=== PATIENT | female | born 1985 | race Caucasian/White ===

== ENCOUNTER 2018-12-14 11:23 | Outpatient (REF) | payer BC, SELFPAY ==
--- NOTE | 2018-12-14 08:30 | PAPFT_PTH ---
PATIENT: Natalya Puga LOC: [facility] U#:[id number] AGE/SX: 32/F ROOM: RE12/14/[address]: RED Sutherland : 1985 BED: DIS: 12/14/2018 SPEC #: [id number] RECD: 12/14/18 13:07 STATUS: HENRIETTA PRABHAKAR #: [id number] JUAN CARLOS: 12/14/18 08:[address]: Luz Marina Lanier DEPT: [facility] Cytology RECD BY: Danisha Tamez ENTERED: 12/14/18 13:08 SP TYPE: PAPFT PRETTY DR: Felecia Kitchen APRN Tissues: 1 - CX/ENDOCX FOR PAP SMEARS Procedures: PAP THIN PREP/UVM Screening HPV DNA PROBE Comments: [id number]
== END 2018-12-14 11:43 ==
LOC: LBN 11:23
PROVIDERS: PCP Nurse Practitioner; Visit Provider Nurse Practitioner Family
DX: Z12.4 Encounter for screening for malignant neoplasm of cervix (principal); Z11.51 Encounter for screening for human papillomavirus (HPV)
CPT/HCPCS: 88142; 87624

== ENCOUNTER 2019-10-01 10:59 | Outpatient (REF) | payer BC, SELFPAY ==
[2019-10-04 15:10] LABS: Chlamydia Result Negative (Negative); GC Result Negative (Negative)
== END 2019-10-01 11:19 ==
LOC: LBN 10:59
PROVIDERS: PCP Nurse Practitioner; Visit Provider Nurse Practitioner Family
DX: Z11.3 Encounter for screening for infections with a predominantly sexual mode of transmission (principal)
CPT/HCPCS: 87491; 87591

== ENCOUNTER 2019-10-15 01:52 | Outpatient (CLI) | payer BC, SELFPAY ==
--- NOTE | 2019-10-15 07:57 | DI.US_ITS ---
EXAM: US PELVIS TRANSVAGINAL CLINICAL HISTORY: IUD surveillence,Z30.431 TECHNIQUE: Ultrasound performed using standard protocol. COMPARISON: RIGHT EXTREMITY ULTRASOUND from 08/16/2016 FINDINGS: Pelvic ultrasound was performed transabdominally and transvaginally. Please see the accompanying kirt a sheet for measurements of pelvic structures. 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 No hydronephrosis or nephrolithiasis. There is an IUD seen in the mid fundal endometrial cavity. Endometrial stripe is about 11 millimeter s in thickness and appears fairly homogeneous. The ovaries have a normal follicular appearance. The re is a high echogenicity focus in the left ovary which is nonspecific but which should represent dee cification. No free fluid identified in the cul-de-sac. IMPRESSION: Question left ovarian calcification, alternatively hyperechoic mass such as fat containing dermoid no t excluded. Correlation with pelvic MRI should be considered for further evaluation to evaluate this ovarian finding and exclude neoplasm.
== END 2019-10-15 02:12 ==
PROVIDERS: PCP Nurse Practitioner; Visit Provider Nurse Practitioner Women's Health
DX: Z30.431 Encounter for routine checking of intrauterine contraceptive device (principal); N83.8 Other noninflammatory disorders of ovary, fallopian tube and broad ligament
CPT/HCPCS: 76830; 76856

== ENCOUNTER 2021-12-25 16:38 | Outpatient (REF) | payer OTHER, SELFPAY ==
--- NOTE | 2021-12-25 13:30 | PAPFT_PTH ---
PATIENT: Natalya Puga LOC: [facility] U#:[id number] AGE/SX: 36/F ROOM: RE12/25/[address]: Leona Mendoza NP : 1985 BED: DIS: 12/25/2021 SPEC #: [id number] RECD: 12/25/21 17:50 STATUS: HENRIETTA REQ #: [id number] JUAN CARLOS: 12/25/21 13:[address]: Reji ROMAN,Leona DEPT: [facility] Cytology RECD BY: Danisha Tamez ENTERED: 12/25/21 17:51 SP TYPE: PAPFT OTHR DR: Felecia Kitchen APRN Tissues: 1 - CX/ENDOCX FOR PAP SMEARS Procedures: PAP THIN PREP/UVM Screening HPV DNA PROBE Comments: [id number]
== END 2021-12-25 16:39 | disposition home or self-care (01) ==
LOC: LBN 16:38
PROVIDERS: PCP Nurse Practitioner; Visit Provider Nurse Practitioner Women's Health
DX: Z12.4 Encounter for screening for malignant neoplasm of cervix (principal); Z11.51 Encounter for screening for human papillomavirus (HPV)
CPT/HCPCS: 88142; 87624

== ENCOUNTER 2022-01-08 20:54 | Emergency (ER) | payer OTHER, SELFPAY ==
[2022-01-08 20:58] VITALS: BP 136/76; PULSE 76; RESP 12; TEMP 37.3; O2SAT 99
--- NOTE | 2022-01-08 21:00 | DI.RAD_ITS ---
Exam(s) XR FINGER RT RING EXAM: XR FINGER RT RING CLINICAL HISTORY: Crush injury, R/O Fracture Distal Phalange. TECHNIQUE: 2D digital imaging was performed. Three views. COMPARISON: No exams were available for comparison FINDINGS: BONES: There are few tiny calcific densities adjacent to the tuft of the distal phalanx is could repr esent fracture fragments or foreign bodies.. No bony destructive lesion is seen. JOINTS: No dislocation present. SOFT TISSUE: Soft tissue defect at tip of finger. IMPRESSION: Soft tissue injury with question tiny fracture fragment versus foreign body adjacent to the tuft of t he distal phalanx. DATA REPOSITORY: RADIATION DOSE DELIVERED:
--- NOTE | 2022-01-08 21:15 | W.ED.GENAD ---
Discharge Plan Disposition Patient Disposition: HOME Condition: Stable Discharge Details Clinical Impression: Fracture of distal phalanx of finger of right hand Primary Care Provider: Felecia Kitchen ED Provider: Rhonda Sidhu Home Meds and New Rx's Prescriptions: Continued lorazepam 0.5 mg tablet 0.5 mg PO BID PRN (Reason: anxiety) Qty: 40 0RF Kyleena 17.5 mcg/24 hrs (5 yrs) 19.5 mg intrauterine device 1 device intrauterine ONCE Qty: 1 0RF hydroxyzine pamoate [Vistaril] 25 mg capsule 25 mg PO BID PRN0RF Rx Instructions: 03/02/21 [facility] prescribes. May take 1-2 tabs a day as needed for mild to moderate SOLITARIO. Treats headache, nausea and anxiety ondansetron HCl [Zofran] 4 mg tablet 4 mg PO Q8H 0RF Rx Instructions: 03/02/21 [facility]. Use for nausea zolmitriptan 2.5 mg tablet 2.5 mg PO ONCE PRN0RF Rx Instructions: take 1 tablet with naproxen at onset of migraine, not to exceed 2days/week naproxen 500 mg tablet 500 mg PO ONCE 0RF Rx Instructions: take 1 tablet at onset of migraine--not to exceed 9days/mo meclizine 25 mg tablet 25 mg PO TID PRN0RF Discharge Instructions Instructions: Finger Fracture (ED) Additional Instructions: Keep the dressing on for the next 12 to 24 hours. After 24 hours you may change the dressing daily. Allow to air dry at least 1 to 2 hours a day. Rest, ice, compression, elevation. Keep the splint on for protection. Wash under running soap and water. Use the splint as needed for the neck 2 to 3 weeks. Does appear that there is a nondisplaced distal phalange fracture. Return to the ER or be seen again for any signs of infection including increased redness, increased pain, red streaks, drainage or any concerns. Please take Tylenol or Ibuprofen with food every 4-6 hours as needed for pain and swelling. Referrals: Felecia Kitchen, [facility] [Primary Care Provider] - Return if symptoms worsen Medical Decision Making 36-year-old female presents to the ER with chief complaint of right distal index finger crush injury. Patient reports approximately hour ago she was bending down and got her finger slammed in the inside hinge of a door. She does have a broken nail noted distally with some bleeding. Imaging ordered to rule out fracture, will soak digits in sterile saline and Betadine. I did discuss clipping the nail off. Patient verbalized understanding. Okay'd patient to take her on naproxen which she has with her. 2147: Nail trimmed and Xeroform gauze, 2 x 2 and tube gauze applied to finger. Discussed applying a splint to keep protection to the finger. I did offer a work note which patient declined. 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 Imaging Data Radiologic Study: Imaging: X-Ray My impression: Distal nondisplaced Phalange Fracture Radiologist's impression: Imaging protocol: XR Right fingers. Views: Minimum 2 views. COMPARISON: US RIGHT EXTREMITY ULTRASOUND 08/16/2016 4:18 PM FINDINGS: Bones/joints: Three views of the right 4th digit are submitted. Tiny calcific densities are subtly demonstrated adjacent to the tip of the distal phalanx. Tiny bone fragments, soft tissue calcifications, or artifact could have this appearance. Otherwise, no acute fracture is seen. Soft tissues: There is soft tissue swelling in the distal aspect of the right 4th digit. IMPRESSION: Tiny calcific densities subtly demonstrated adjacent to the tip of the distal phalanx of the 4th right digit. Tiny bone fragments, soft tissue calcifications, or artifact could have this appearance. Otherwise, no acute fracture is seen in the right 4th digit. Thank you for allowing us to participate in the care of your patient. Dictated and Authenticated by: Andrea Ibarra MD [facility] General Mode of arrival: ambulatory. Date/Time Provider Initiated Documentation: 01/08/22 21:05. Limitations to Documentation: no limitations. Information obtained by: patient, RN notes reviewed and old records reviewed. HPI Narrative: 36-year-old female presents to the ER with chief complaint of right distal index finger crush injury. Patient reports approximately hour ago she was bending down and got her finger slammed in the inside hinge of a door. She does have a broken nail noted distally with some bleeding. There is a small subungual hematoma noted. There is distal swelling. Patient has a past medical history of migraine and anxiety. Related Data Home Medications Medication Instructions Recorded Confirmed hydroxyzine pamoate 25 mg capsule 25 mg PO BID PRN 03/02/21 12/31/21 (Vistaril) ondansetron HCl 4 mg tablet 4 mg PO Q8H 03/02/21 01/08/22 (Zofran) lorazepam 0.5 mg tablet 0.5 mg PO BID PRN #40 tab 07/25/21 01/08/22 meclizine 25 mg tablet 25 mg PO TID PRN 11/21/21 01/08/22 naproxen 500 mg tablet 500 mg PO ONCE tab 11/21/21 01/08/22 zolmitriptan 2.5 mg tablet 2.5 mg PO ONCE PRN 11/21/21 01/08/22 levonorgestrel (Kyleena) 1 device INTRAUTERINE ONCE #1 ea 12/31/21 01/08/22 Previous Rx's Medication Instructions Recorded lorazepam 0.5 mg tablet 0.5 mg PO BID PRN #40 tab 07/25/21 levonorgestrel (Kyleena) 1 device INTRAUTERINE ONCE #1 ea 12/31/21 Allergies Allergy/AdvReac Type Severity Reaction Status Date / Time Cephalosporins Allergy Severe Hives Verified 01/08/22 21:01 Penicillins Allergy Severe Hives Verified 01/08/22 21:01 General Stated Complaint: Orthopedic TOMI: 4 Review of Systems Integumentary/Breasts Skin/Breast: Reports as per HPI and Reports wounds (Crush injury right ring finger) PFSH All Active Problems (Updated 01/08/22 @ 22:00 by Rhonda Sidhu) Fracture of distal phalanx of finger of right hand (Acute) IUD surveillance (Acute 12/31/21) Kyleena Migraine without aura, not intractable, without status migrainosus (Acute) Lesion of left ovary (Acute) by US ? Dermoid vs calcifications. [place] [facility] [place] Anxiety (Chronic) Callus of foot (Acute) Plantar wart of left foot (Acute) Medical History Seborrheic dermatitis scalp [place]20[place] [place] Surgical History Appendectomy (01/15/16) Augmentation mammoplasty Family History Sister HELLP syndrome Brother Down syndrome Grandfather Lung cancer Grandmother Colon cancer Grandfather Diabetes Essential hypertension Heart disease Myocardial infarction Grandmother TIA (transient ischemic attack) Social History Smoking/Tobacco Use Status: Former Tobacco Use Pack-years: 8 Smoking risk assessment performed?: Yes Alcohol Intake: current Alcohol Intake frequency: a few times a week Alcohol type: wine Drug use: Never Substance use type: does not use Adopted: No Household members: children Housing: house 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 [employer] Working smoke detector in home: Yes Fire extinguisher in home: Yes Carbon monox detector in home: Yes Firearms in home: Yes Firearms unloaded and locked: Yes Do you feel safe at home: Yes Do you feel safe in your relationship?: Yes History History 1 Para 1 Hx # Term Pregnancies Multiple births Hx # Pregnancies Ectopic pregnancies AB induced Hx Number of Living Children AB spontaneous Exam Const General: cooperative, healthy appearing, comfortable, no acute distress, well developed and well groomed Nutritional Appearance: average body habitus and well nourished Orientation: alert, awake and oriented x3 Extrem Hand/finger images: 1. Partial nail avulsion distal bleeding. Small subungual hematoma. Distal phalanges swelling no obvious deformity does have full flexion and extension noted to the digit. Distal sensation intact. Course Vital Signs Vital signs: Vital Signs Temperature 37.3 C 01/08/22 20:58 Pulse 76 01/08/22 20:58 Respiratory Rate 12 01/08/22 20:58 Blood Pressure 136/76 01/08/22 20:58 Pulse Oximetry 99 01/08/22 20:58 Temperature 37.3 C 01/08/22 20:58 Temperature Source Oral 01/08/22 20:58 Pulse 76 01/08/22 20:58 Respiratory Rate 12 01/08/22 20:58 Respiratory Effort Non-Labored 01/08/22 21:03 Blood Pressure 136/76 01/08/22 20:58 Blood Pressure Position Sitting 01/08/22 20:58 Pulse Oximetry 99 01/08/22 20:58 Oxygen Delivery Method Room Air 01/08/22 20:58 Oxygen Flow Rate 0 01/08/22 20:58 Pain Level 6 01/08/22 21:03 PAWSS Have you Been Recently Intoxicated or Drunk Within the Last 30 days?: No Have you Ever Experienced Previous Episodes of Alcohol Withdrawal?: No Have you ever Experienced Withdrawal Seizures?: No Have you ever Experienced Delirium Tremens(DT)s?: No Have you ever undergone Alcohol Rehabilitation Treatment (i.e, inpt ot outpatient treatment programs)?: No Have you ever Experienced Blackouts?: No Have you ever Combined Alcohol with other Downers within the last 90 days?: No Have you ever Combined Alcohol with any other Substance of Abuse during the last 90 days?: No Positive Blood Alcohol level on Presentation? [PCS.BAL]: No Evidence of Increased Autonomic Activity (i.e. HR>120, tremor, sweating, agitation, nausea)?: No Result: 0
[2022-01-08] MEDS: Povidone-Iodine Soln. 118 ML BTL (21:41)
--- NOTE | 2022-01-08 22:11 | DI.VRAD_ITS ---
PROCEDURE INFORMATION: Exam: XR Right Finger(s) Exam date and time: 01/08/2022 9:26 PM Age: 36 years old Clinical indication: Injury or trauma; Other: Finger slammed in door; Crushing; Right; Ring finger; Injury date: 01/08/22; Injury details: Crush injury, R/O fracture distal phalange TECHNIQUE: Imaging protocol: XR Right fingers. Views: Minimum 2 views. COMPARISON: US RIGHT EXTREMITY ULTRASOUND 08/16/2016 4:18 PM FINDINGS: Bones/joints: Three views of the right 4th digit are submitted. Tiny calcific densities are subtly demonstrated adjacent to the tip of the distal phalanx. Tiny bone fragments, soft tissue calcifications, or artifact could have this appearance. Otherwise, no acute fracture is seen. Soft tissues: There is soft tissue swelling in the distal aspect of the right 4th digit. IMPRESSION: Tiny calcific densities subtly demonstrated adjacent to the tip of the distal phalanx of the 4th right digit. Tiny bone fragments, soft tissue calcifications, or artifact could have this appearance. Otherwise, no acute fracture is seen in the right 4th digit. Dictated and Authenticated by: Andrea Ibarra MD. Ordering:MARCO Ellis MD
[2022-01-08 22:33] VITALS: BP 136/76; PULSE 76; RESP 12; TEMP 37.3; O2SAT 99
== END 2022-01-08 22:35 | disposition home or self-care (01) ==
PROVIDERS: Emergency Provider Registered Nurse Emergency; PCP Nurse Practitioner
DX: S62.634A Displaced fracture of distal phalanx of right ring finger, initial encounter for closed fracture (principal); W23.0XXA Caught, crushed, jammed, or pinched between moving objects, initial encounter
CPT/HCPCS: 29130; 99283; 73140

== ENCOUNTER 2022-08-15 10:22 | Outpatient (REF) | payer OTHER, SELFPAY ==
[2022-08-17 00:03] LABS: COVID-19 RT-PCR UVMMC Result Positive (Negative)
[2022-08-17 00:10] LABS: Influenza A RNA Result Negative (Negative); Influenza B RNA Result Negative (Negative); RSV RNA Result Negative (Negative)
== END 2022-08-15 10:23 | disposition home or self-care (01) ==
LOC: LBN 10:22
PROVIDERS: PCP Nurse Practitioner; Visit Provider Nurse Practitioner
DX: R05.9 Cough, unspecified (principal); R06.02 Shortness of breath; R09.81 Nasal congestion
CPT/HCPCS: 87631; U0003

== ENCOUNTER 2022-10-20 07:35 | Emergency (ER) | payer BC, SELFPAY ==
[2022-10-20 07:38] VITALS: BP 124/82; PULSE 85; RESP 12; TEMP 36.5; O2SAT 99
--- NOTE | 2022-10-20 08:00 | DI.RAD_ITS ---
Exam(s) XR PORTABLE CHEST AP EXAM: XR PORTABLE CHEST AP CLINICAL HISTORY: cough TECHNIQUE: 2D digital imaging was performed of the chest. One image was obtained. An AP view was ob tained. COMPARISON: No exams were available for comparison FINDINGS: MEDIASTINUM: Normal. HEART: Normal. PULMONARY VASCULATURE: Normal. LUNGS: Clear. PLEURAL SPACE: No pleural effusion or pneumothorax. BONE:Within normal limits for the patient's age. OTHER FINDINGS:Normal. IMPRESSION: No acute pulmonary findings. DATA REPOSITORY: RADIATION DOSE DELIVERED:
--- NOTE | 2022-10-20 08:05 | ED.GENADUL_ITS ---
Discharge Plan Disposition Patient Disposition: Home Condition: Stable Discharge Details Clinical Impression: Wheezing Primary Care Provider: Felecia Kitchen ED Provider: José Luis Mendoza Home Meds and New Rx's Prescriptions: New albuterol sulfate 90 mcg/actuation HFA aerosol inhaler 2 puff inhalation Q6H PRNQty: 8.5 0RF prednisone 20 mg tablet 60 mg PO DAILY 4 Days Qty: 12 0RF Continued Kyleena 17.5 mcg/24 hrs (5 yrs) 19.5 mg intrauterine device 1 device intrauterine ONCE Qty: 1 0RF lorazepam 0.5 mg tablet 0.5 mg PO BID PRN (Reason: anxiety) Qty: 40 0RF ondansetron HCl [Zofran] 4 mg tablet 4 mg PO Q8H Rx Instructions: 03/02/21 [facility] [place] [facility]. Use for nausea zolmitriptan 2.5 mg tablet 2.5 mg PO ONCE PRN Rx Instructions: take 1 tablet with naproxen at onset of migraine, not to exceed 2days/week naproxen 500 mg tablet 500 mg PO ONCE Rx Instructions: take 1 tablet at onset of migraine--not to exceed 9days/mo meclizine 25 mg tablet 25 mg PO TID PRN Discharge Instructions Instructions: Wheezing (ED) Additional Instructions: your xray did not show concerning findings if symptoms persist follow up with your primary care provider if you feel more ill, have worsening trouble breathing or chest pain return to the emergency department Medical Decision Making 36 yo female who denies chronic medical problems though has used inhalers in the past but doesn't havea formal diagnosis of asthma, comes in with chief complaint of cough and wheezing. She states since having covid around thanksgiving this past year she has had a persistent cough mainly at night and some days wakes up feeling wheezy. She has used her albuterol inhaler with some relief. She has not had fevers, chills, chest pain. She arrives stable and appears well in no distress speaking in full sentences. She has apical wheezing bilaterally otherwise clear lungs, no murmurs, no jvd, no leg swelling, no calf pain. Her symptoms are likely due to reactive airway disease and possible uri. Will treat with prednisone, duoneb and obtain cxr. She has no pleuritic chest pain, no hypoxia no tachycardia and no evidence of dvt on exam so doubt PE. No chest pain/pressure so doubt acs. xray unremarkable, she feels much better and lungs clear now. Suspect underlying reactive airway disease. Will d/c and have her f/u with pcp, return precautions given Differential Diagnosis Differential Diagnosis: asthma, uri, pneumonia Imaging Data Radiologic Study: Attestation: I personally reviewed and interpreted this imaging study as follows: Imaging: X-Ray Radiologist's impression: no acute findings HPI General Mode of arrival: ambulatory . Date/Time Provider Initiated Documentation: 10/20/22 07:57 . Limitations to Documentation: no limitations . Information obtained by: patient . History of Present Illness 36 year old F presents to the emergency department with the chief complaint of wheezing, described as moderate, Patient reports no radiation. Patient started experiencing this month(s) (2) and it has been intermittent. No relieving factors improve symptom(s), No exacerbating factors reported . Patient notes cough; denies fever/chills. Patient did receive the following treatments prior to arrival, none Related Data Home Medications Medication Instructions Recorded Confirmed ondansetron HCl 4 mg tablet 4 mg PO Q8H 03/02/21 10/20/22 (Zofran) meclizine 25 mg tablet 25 mg PO TID PRN 11/21/21 10/20/22 naproxen 500 mg tablet 500 mg PO ONCE 11/21/21 10/20/22 zolmitriptan 2.5 mg tablet 2.5 mg PO ONCE PRN 11/21/21 10/20/22 levonorgestrel 17.5 mcg/24 hrs 1 device intrauterine ONCE #1 ea 12/31/21 10/20/22 (5yrs) 19.5mg intrauterine device (Kyleena) lorazepam 0.5 mg tablet 0.5 mg PO BID PRN anxiety #40 tabs 08/15/22 10/20/22 albuterol sulfate 90 mcg/actuation 2 puff inhalation Q6H PRN #8.5 10/20/22 aerosol inhaler grams prednisone 20 mg tablet 60 mg PO DAILY 4 days #12 tabs 10/20/22 Previous Rx's Medication Instructions Recorded levonorgestrel 17.5 mcg/24 hrs 1 device intrauterine ONCE #1 ea 12/31/21 (5yrs) 19.5mg intrauterine device (Kyleena) lorazepam 0.5 mg tablet 0.5 mg PO BID PRN anxiety #40 tabs 08/15/22 albuterol sulfate 90 mcg/actuation 2 puff inhalation Q6H PRN #8.5 10/20/22 aerosol inhaler grams prednisone 20 mg tablet 60 mg PO DAILY 4 days #12 tabs 10/20/22 Allergies Allergy/AdvReac Type Severity Reaction Status Date / Time Cephalosporins Allergy Severe Hives Verified 10/20/22 07:48 Penicillins Allergy Severe Hives Verified 10/20/22 07:48 General Stated Complaint: RespSymp TOMI: 4 Review of Systems All systems reviewed & are unremarkable except as noted in HPI and below Constitutional Constitutional: Denies chills, Denies fever(s) and Denies weakness Cardiovascular Cardiovascular: Denies chest pain Gastrointestinal Gastrointestinal: Denies abdominal pain, Denies nausea and Denies vomiting Neurologic Neurologic: Denies weakness PFSH All Active Problems (Updated 10/20/22 @ 08:47 by José Luis Mendoza MD) Wheezing (Acute) IUD surveillance (Acute 12/31/21) Kyleena Migraine without aura, not intractable, without status migrainosus (Acute) Lesion of left ovary (Acute) by US ? Dermoid vs calcifications. Pt elected [facility] [place] Anxiety (Chronic) Callus of foot (Acute) Plantar wart of left foot (Acute) Medical History (Updated 10/20/22 @ 08:47 by José Luis Mendoza MD) COVID (~08/06/22) Seborrheic dermatitis scalp 03/12/2021 ([facility] [place] Surgical History Appendectomy (01/15/16) Augmentation mammoplasty Family History Sister HELLP syndrome Brother Down syndrome Grandfather Lung cancer Grandmother Colon cancer Grandfather Diabetes Essential hypertension Heart disease Myocardial infarction Grandmother TIA (transient ischemic attack) Social History Smoking/Tobacco Use Status: Former Tobacco Use Pack-years: 8 Smoking risk assessment performed?: Yes Alcohol Intake: current Alcohol Intake frequency: a few times a week Alcohol type: wine Drug use: Never Substance use type: does not use Adopted: No Household members: children Housing: house 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 - [employer] Working smoke detector in home: Yes Fire extinguisher in home: Yes Carbon monox detector in home: Yes Firearms in home: Yes Firearms unloaded and locked: Yes Do you feel safe at home: Yes Do you feel safe in your relationship?: Yes History History 1 Para 1 Hx # Term Pregnancies Multiple births Hx # Pregnancies Ectopic pregnancies AB induced Hx Number of Living Children AB spontaneous Exam Const General: no acute distress Orientation: alert HENMT Head: normal to inspection Ears: external ears normal General nose exam: external nose normal Mouth: moist mucous membranes Eyes General: appearance normal, both eyes and all related structures Neck Neck: normal visual inspection Resp Effort & Inspection: normal respiratory effort, able to speak in complete sentences and cough Auscultation: wheezes Cardio Jugular venous pressure: no JVD Rate: regular rate Heart Sounds: no murmurs Skin General skin exam: no rashes or lesions noted Neuro General: patient alert and patient oriented x3 Extrem General: normal to inspection Psych Mental Status: mental status grossly normal Course Vital Signs Vital signs: Vital Signs Temperature 36.5 C 10/20/22 07:38 Pulse 85 10/20/22 07:38 Respiratory Rate 12 10/20/22 07:38 Blood Pressure 124/82 10/20/22 07:38 Pulse Oximetry 99 10/20/22 07:38 Temperature 36.5 C 10/20/22 07:38 Temperature Source Skin 10/20/22 07:38 Pulse 85 10/20/22 07:38 Respiratory Rate 12 10/20/22 07:38 Respiratory Effort 10/20/22 07:49 Respiratory Depth Normal 10/20/22 07:49 Blood Pressure 124/82 10/20/22 07:38 Blood Pressure Position Sitting 10/20/22 07:38 Pulse Oximetry 99 10/20/22 07:38 Oxygen Delivery Method Room Air 10/20/22 07:38 Oxygen Flow Rate 0 10/20/22 07:38 Pain Level 0 10/20/22 07:38 PAWSS Have you Been Recently Intoxicated or Drunk Within the Last 30 days?: No Have you Ever Experienced Previous Episodes of Alcohol Withdrawal?: No Have you ever Experienced Withdrawal Seizures?: No Have you ever Experienced Delirium Tremens(DT)s?: No Have you ever undergone Alcohol Rehabilitation Treatment (i.e, inpt ot outpatient treatment programs)?: No Have you ever Experienced Blackouts?: No Have you ever Combined Alcohol with other Downers within the last 90 days?: No Have you ever Combined Alcohol with any other Substance of Abuse during the last 90 days?: No Positive Blood Alcohol level on Presentation? [PCS.BAL]: No Evidence of Increased Autonomic Activity (i.e. HR>120, tremor, sweating, agitation, nausea)?: No Result: 0
[2022-10-20] MEDS: predniSONE 20 MG TAB 60 MG PO (08:07)
[2022-10-20] MEDS: Albuterol/Ipratropium 3 ML UPD VIAL UPD (08:17)
--- NOTE | 2022-10-20 08:29 | DI.VRAD_ITS ---
PROCEDURE INFORMATION: Exam: XR Chest Exam date and time: 10/20/2022 7:54 AM Age: 36 years old Clinical indication: Other: Cough TECHNIQUE: Imaging protocol: Radiologic exam of the chest. Views: 1 view. COMPARISON: No relevant prior studies available. FINDINGS: Lungs: The lung parenchyma is clear. Pleural spaces: No pneumothorax. No pleural effusion. Heart/Mediastinum: The cardiomediastinal silhouette is within normal limits. Bones/joints: Unremarkable. IMPRESSION: No acute cardiopulmonary abnormality. Dictated and Authenticated by: Scott Savage MD. Ordering:SABA Ordonez MD
[2022-10-20 08:42] VITALS: BP 136/61; PULSE 76; RESP 14; O2SAT 100
== END 2022-10-20 08:52 | disposition home or self-care (01) ==
PROVIDERS: Emergency Provider Emergency Medicine; PCP Nurse Practitioner
DX: R06.2 Wheezing (principal); Z86.16 Personal history of COVID-19
CPT/HCPCS: 99283; 71045; 99284; J7512; J7620

== ENCOUNTER 2023-02-06 03:20 | Outpatient (CLI) | payer BC, SELFPAY ==
[2023-02-06] MEDS: Inhaler, Assist Device 1 EACH MC (09:04)
[2023-02-06] MEDS: Albuterol HFA 18 GM 200 PUFF INH IH (09:04)
--- NOTE | 2023-02-06 09:51 | W.PFT ---
Date of service: 02/06/23 Time of Service: 08:03 Pulmonary Function Test Result Indications: Asthma Interpretation Spirometry: There is mild airflow limitation. There is no significant bronchodilator response. Lung Volumes: There is hyperinflation and air trapping Diffusion Capacity: There is a normal diffusion Airway Pressure: There is normal airways resistance Impression Mild airflow obstruction with hyperinflation and a normal diffusion. This may represent uncontrolled asthma or COPD (chronic bronchitis). Clinical Correlation therefore is recommended.
== END 2023-02-06 03:21 | disposition home or self-care (01) ==
PROVIDERS: PCP Nurse Practitioner; Visit Provider Nurse Practitioner
DX: J45.909 Unspecified asthma, uncomplicated (principal)
CPT/HCPCS: 94060; 94726; 94729

== ENCOUNTER 2023-06-18 14:52 | Outpatient (REF) | payer BC, SELFPAY ==
[2023-06-18 15:37] LABS: Abs Immature Grans 0.02 10^3/uL (0.0-0.06); Absolute Basophil Count 0.03 10^3/uL (0.0-0.2); Absolute Eosinophil Count 0.07 10^3/uL (0.0-0.7); Absolute Lymphocyte Count 2.32 10^3/uL (1.2-3.4); Absolute Monocyte Count 0.43 10^3/uL (0.1-0.8); Absolute Neutrophil Count 5.23 10^3/uL (1.2-6.7); Basophils % 0.4; Eosinophils % 0.9; HCT 39.7 % (36.0-46.0); HGB 13.2 g/dL (11.2-15.7); Immature Grans % 0.2; Lymphocytes % 28.6; MCH 29.1 pg (27.0-33.0); MCHC 33.2 % (32.0-36.0); MCV 87 fL (80-95); MPV 11.5 fL (8.0-11.0); Monocytes % 5.3; Neutrophils % 64.6; Platelet Count 211 10^3/uL (130-400); RBC 4.54 10^6/uL (3.93-5.22); RDW 11.9 % (11.7-14.6); RDW-SD 38.2 fL
[2023-06-20 10:46] LABS: IgE 14 IU/mL (<158)
== END 2023-06-18 14:53 | disposition home or self-care (01) ==
LOC: LBN 14:52
PROVIDERS: PCP Nurse Practitioner; Visit Provider Physician Assistant Surgical
DX: J45.909 Unspecified asthma, uncomplicated (principal)
CPT/HCPCS: 82785; 85025

== ENCOUNTER 2024-02-12 05:09 | Emergency (ER) | payer OTHER, BC, SELFPAY ==
[2024-02-12 05:14] VITALS: BP 145/103; PULSE 82; RESP 16; TEMP 36.2; O2SAT 98
--- NOTE | 2024-02-12 05:15 | W.ED.GENAD ---
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 Primary Care Provider: Felecia Kitchen ED Provider: David Serrano Home Meds and New Rx's Prescriptions: No Action drospirenone-ethinyl estradiol [CHINO (28)] 3-0.02 mg tablet 1 tab PO DAILY Qty: 84 4RF Rx Instructions: Take one active tab daily on a continuously with no breaks Kyleena 17.5 mcg/24 hrs (5 yrs) 19.5 mg intrauterine device 1 device intrauterine ONCE Qty: 1 0RF levocetirizine [Xyzal] 5 mg tablet 5 mg PO DAILY lorazepam 0.5 mg tablet 0.5 mg PO BID PRN (Reason: Grief) Qty: 40 0RF naproxen 500 mg tablet 500 mg PO BID PRN (Reason: pain) Qty: 180 3RF meclizine 25 mg tablet 25 mg PO TID PRN albuterol sulfate 90 mcg/actuation HFA aerosol inhaler 2 puff inhalation Q6H PRN (Reason: shortness of breath or wheezing) Qty: 8.5 3RF (DME) Flexichamber Spacer See Rx Instructions .Route Qty: 1 0RF Rx Instructions: As directed budesonide-formoterol [Symbicort] 80-4.5 mcg/actuation HFA aerosol inhaler 2 puff inhalation BID Qty: 10.2 12RF (DME) Maxx Aerosol [place] Enhancer Spacer See Rx Instructions .Route Qty: 1 0RF Rx Instructions: As directed HPI General Mode of arrival: ambulatory. Date/Time Provider Initiated Documentation: 02/12/24 05:10. Limitations to Documentation: no limitations. Information obtained by: patient, RN notes reviewed and old records reviewed. HPI Narrative: Patient presenting to ED after being woke from sleep with left lower quadrant pain. Pain is described as sharp in nature with some radiation to the back. She has a history of ovarian cyst but this is much more intense than what she typically has. She has a little bit of nausea. She has no vomiting or diarrhea. She has no urinary symptoms. She did take Naprosyn at home before coming in which seems to have helped with the pain. Has been well otherwise and just this month had her annual [facility] exam, physical exam and pulmonary follow-up for asthma. She has both an IUD and is on oral contraceptive as well, mostly for ovarian cyst suppression. Related Data Home Medications Medication Instructions Recorded Confirmed meclizine 25 mg tablet 25 mg PO TID PRN 11/21/21 02/12/24 levonorgestrel 17.5 mcg/24 hr (up 1 device intrauterine ONCE #1 ea 12/31/21 02/12/24 to 5 yrs) 19.5mg intrauterine device (Kyleena) albuterol sulfate 90 mcg/actuation 2 puff inhalation Q6H PRN 02/07/23 02/12/24 aerosol inhaler shortness of breath or wheezing #8.5 grams inhalational spacing device #1 ea 05/27/23 02/12/24 (Flexichamber spacer) levocetirizine 5 mg tablet (Xyzal) 5 mg PO DAILY 06/11/23 02/12/24 budesonide-formoterol HFA 80 2 puff inhalation BID #10.2 grams 12/08/23 02/12/24 mcg-4.5 mcg/actuation aerosol inhaler (Symbicort) inhalational spacing device (Maxx #1 ea 12/08/23 02/12/24 Aerosol [place] Enhancer spacer) drospirenone 3 mg-ethinyl 1 tab PO DAILY #84 tabs 01/21/24 02/12/24 estradiol 0.02 mg tablet (CHINO (28)) lorazepam 0.5 mg tablet 0.5 mg PO BID PRN Grief #40 tabs 02/04/24 02/12/24 naproxen 500 mg tablet 500 mg PO BID PRN pain #180 tabs 02/04/24 02/12/24 Previous Rx's Medication Instructions Recorded levonorgestrel 17.5 mcg/24 hr (up 1 device intrauterine ONCE #1 ea 12/31/21 to 5 yrs) 19.5mg intrauterine device (Kyleena) albuterol sulfate 90 mcg/actuation 2 puff inhalation Q6H PRN 02/07/23 aerosol inhaler shortness of breath or wheezing #8.5 grams inhalational spacing device #1 ea 05/27/23 (Flexichamber spacer) budesonide-formoterol HFA 80 2 puff inhalation BID #10.2 grams 12/08/23 mcg-4.5 mcg/actuation aerosol inhaler (Symbicort) inhalational spacing device (Maxx #1 ea 12/08/23 Aerosol [place] Enhancer spacer) drospirenone 3 mg-ethinyl 1 tab PO DAILY #84 tabs 01/21/24 estradiol 0.02 mg tablet (CHINO (28)) lorazepam 0.5 mg tablet 0.5 mg PO BID PRN Grief #40 tabs 02/04/24 naproxen 500 mg tablet 500 mg PO BID PRN pain #180 tabs 02/04/24 Allergies Allergy/AdvReac Type Severity Reaction Status Date / Time Cephalosporins Allergy Severe Hives Verified 02/12/24 05:18 Penicillins Allergy Severe Hives Verified 02/12/24 05:18 General TOMI: 4 Review of Systems Narrative: per HPI Exam Narrative Exam Narrative: Const: Thin female in NAD. VS per triage. HEENT: NC/AT. Normal facial exam. Neck: Supple. Trachea midline. Lungs: Normal respiratory effort. GI: Soft/ND. Some tenderness in the left suprapubic area. No guarding or rebound. No masses felt. Pelvic: Deferred. Back: No CVAT. Neuro: A+O x 3. Normal speech, mentation, gait. Cranial nerves II - XII grossly intact. No gross motor or sensory deficit. Ext: No C/C/E. Medical Decision Making Patient presenting with sudden onset of left lower quadrant abdominal pain which is mostly centered in the left suprapubic area. Unlikely to be related to given that she is on control and has an IUD. May be related to prior ovarian cyst, consider ovarian torsion. Does have radiation to the back and is described as sharp and intense suggesting possible renal colic. Abdomen is fairly benign. Will plan urine , urinalysis, CBC and BMP. Declines anything for pain currently. Depending on urinalysis results we will proceed with CT versus ultrasound. 6 AM?patient's test is negative. Urinalysis tests positive for blood. CBC and BMP are normal. Patient still declining pain medication. Stone study ordered given sudden onset of pain with microscopic hematuria present. 7:30 AM?CT is complete, preliminary read with no acute pathology and specifically no stone to explain patient's pain. She still is uncomfortable but continues to decline pain medication. Will proceed with pelvic ultrasound. Patient signed out to oncoming ED physician Dr. Carlson. Medical Records Medical records reviewed: Yes I reviewed the patient's medical records. Lab Data Lab results reviewed: Yes I reviewed the patient's lab results. Quality:[facility] Health Related Social Needs: No Data to Display PFSH All Active Problems Seborrheic dermatitis (Acute) scalp [place] [facility] IUD surveillance (Acute 12/31/21) Kyleena Migraine without aura, not intractable, without status migrainosus (Acute) Lesion of left ovary (Acute) by US ? Dermoid vs calcifications. 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 Surgical History Augmentation mammoplasty Appendectomy (01/15/16) Family History Sister HELLP syndrome Brother Down syndrome Grandfather Lung cancer Grandmother Colon cancer Grandfather Diabetes Essential hypertension Heart disease Myocardial infarction Grandmother TIA (transient ischemic attack) Social History Smoking/Tobacco Use Status: Former Tobacco Use Pack-years: 8 Tobacco: How many years used: 5 Quit status: has quit before Smoking risk assessment performed?: Yes Alcohol Intake: current Alcohol Intake frequency: a few times a week Alcohol type: wine Drug use: Never Substance use type: does not use Adopted: No Household members: children Housing: house Number of Children: 1 Communication Needs: None Education Level: college current occupation: [employer], and [employer] Sexually active: Yes Current gender identity: female What is your relationship status?: How often do you talk on the phone with friends or family?: twice per week How often do you get together with friends or relatives?: twice per week Panel score (0-1 are the most socially isolated patients): 2 What type of physical activity do you participate in: regular exercise Duration: 30-45 minutes/day Frequency: daily Seatbelt use: always Drive intox or ride w/intox residential recycle driver: No Working smoke detector in home: Yes Fire extinguisher in home: Yes Carbon monox detector in home: Yes Firearms in home: Yes Firearms unloaded and locked: Yes Do you feel safe at home: Yes Do you feel safe in your relationship?: Yes History History 1 Para 1 Hx # Term Pregnancies Multiple births Hx # Pregnancies Ectopic pregnancies AB induced Hx Number of Living Children AB spontaneous
[2024-02-12 05:38] LABS: Abs Immature Grans 0.03 10^3/uL (0.0-0.06); Absolute Basophil Count 0.02 10^3/uL (0.0-0.2); Absolute Eosinophil Count 0.19 10^3/uL (0.0-0.7); Absolute Monocyte Count 0.63 10^3/uL (0.1-0.8); Absolute Neutrophil Count 2.61 10^3/uL (1.2-6.7); Basophils % 0.3 %; HCT 44.1 % (36.0-46.0); HGB 14.8 g/dL (11.2-15.7); Immature Grans % 0.5 %; Lymphocytes % 44.6 %; MCH 29.2 pg (27.0-33.0); MCHC 33.6 % (32.0-36.0); MCV 87 fL (80-95); Neutrophils % 41.6 %; Platelet Count 212 10^3/uL (130-400); RBC 5.07 10^6/uL (3.93-5.22); RDW-SD 38.3 fL; WBC 6.28 10^3/uL (4.4-10.8)
[2024-02-12 05:50] LABS: Anion Gap 9.5 mmol/L (3-11); BUN 16 mg/dL (7-18); CO2 26.5 mmol/L (21.0-32.0); CREATININE 0.8 mg/dL (0.55-1.02); Calcium 9.4 mg/dL (8.5-10.1); Chloride 102 mmol/L (98-107); Estimated GFR 97.87 (mL/min/1.73m2); Glucose 105 mg/dL (74-106); Potassium 4.5 mmol/L (3.5-5.1); Sodium 138 mmol/L (136-145)
[2024-02-12 05:51] LABS: Bilirubin Negative (Negative); Blood Small (Negative); Clarity Sl Cloudy (Clear); Glucose Negative (Negative); Ketones Negative (Negative); Leukocyte Esterase Negative (Negative); Nitrite Negative (Negative); Specific Gravity 1.015 (1.005-1.025); Urobilinogen 0.2 mg/dL (Up to 0.2); pH 5.5 (5-8)
[2024-02-12 05:58] LABS: Bacteria Few HPF (Negative); Epithelial Cells Moderate HPF (Negative); RBC 0-2 HPF (0-2); WBC 0-2 HPF (0-5)
[2024-02-12 05:59] LABS: C & S Indicated? No; Crystals Negative HPF (Negative); Mucus Negative (Negative)
--- NOTE | 2024-02-12 06:00 | DI.CT_ITS ---
Exam(s) CT RENAL COLIC WO EXAM: CT RENAL COLIC WO CLINICAL HISTORY: sudden onset LLQ pain/microscopic hematuria. TECHNIQUE: Imaging Protocol: Axial computed tomography images with coronal and sagittal reformatted images were created and reviewed. COMPARISON: CT PELVIC/LOWER ABD WITH CON(P) from 01/14/2016 FINDINGS: ABDOMEN: Lung Bases: There is a calcified granuloma in the right lower lobe Liver: Normal density. No measurable mass. Gallbladder and biliary tract: No radiodense calculus or biliary ductal dilation. Pancreas: Normal density, no abnormal calcifications or inflammatory process. Spleen: Normal. Kidneys: Normal size, contour and axis.No radiodense stones or obstructive uropathy. There is a 5 mm fat density lesion in the midpole of the left kidney most consistent with a benign lesion such as a a ngiomyolipoma. Adrenal glands: No mass is seen. Lymph nodes: Within normal limits. Abdominal Aorta: Abdominal portion non-dilated. PELVIS: Bladder:Symmetric distention, no gross wall thickening. Bowel: No obstruction or bowel wall thickening. There is a moderate amount of stool throughout the co maria dolores and rectum suggesting constipation. No evidence of appendicitis. Peritoneal cavity: No ascites, collection or mesenteric inflammatory response. No free air. Reproductive organs: There is an IUD which appears in good position. Bones: Within normal limits. Soft Tissues: Within normal limits. IMPRESSION: No evidence of nephrolithiasis or hydronephrosis. RADIATION DOSE DELIVERED: 540.29mGy.cm Total DLP DATA REPOSITORY: All CT scans at this facility are submitted to the National Radiology Data Registry (NRDR) Dose Index Registry (DIR) with the [employer] (ACR). RADIATION OPTIMIZATION: All CT scans at this facility use at least one of these dose optimization te chniques: automated exposure control; mA and/or kV adjustment per patient size (includes targeted exa ms where dose is matched to clinical indication); or iterative reconstruction.
--- NOTE | 2024-02-12 07:30 | DI.US_ITS ---
Exam(s) US PELVIS TRANSVAGINAL EXAM: US PELVIS TRANSVAGINAL CLINICAL HISTORY: hx of ovarian cysts; acute onset LLQ pain. TECHNIQUE: Transabdominal and transvaginal pelvic ultrasound was performed using standard protocol. COMPARISON: CT PELVIC/LOWER ABD WITH CON(P) from 01/14/2016 US US PELVIS TRANSVAGINAL from 10/15/[address] RENAL COLIC WO from 02/12/2024 FINDINGS: UTERUS: Position: Anteverted. Size: 5.3 long by 3.6 AP by 3.5 transverse cm Endometrium: 0.5 cm. Normal for patient's menstrual status. There is an IUD in good position. Myometrium: Unremarkable. Cervix: Unremarkable. OVARIES: Right: 2.6 x 2.5 x 2.0 cm Cyst or mass: No suspicious cystic or solid masses. Left: 2.2 x 1.2 x 1.8 cm Cyst or mass: No suspicious cystic or solid masses. DOPPLER: Color: Symmetric and uniform flow to both ovaries. CUL-DE-SAC: Free fluid: None. Other: None. IMPRESSION: 1. Normal-appearing uterus with endometrial stripe within normal limits. 2. There is an IUD which is in good position. 3. Unremarkable ovaries. DATA REPOSITORY:
--- NOTE | 2024-02-12 07:35 | DI.VRAD_ITS ---
PROCEDURE INFORMATION: Exam: CT Abdomen And Pelvis Without Contrast Exam date and time: 02/12/2024 6:19 AM Age: 38 years old Clinical indication: Other: Sudden onset llq pain/microscopic hematuria TECHNIQUE: Imaging protocol: Computed tomography of the abdomen and pelvis without contrast. COMPARISON: No relevant prior studies are available for comparison. FINDINGS: Limitations: No intravenous contrast was administered, limiting evaluation for some pathologies. Lungs: Calcified granuloma in the right lung. Liver: No focal hepatic lesion identified, within the limitations of a noncontrast examination. Gallbladder and bile ducts: Contracted gallbladder. Pancreas: No CT evidence for acute pancreatitis. Spleen: No splenomegaly. Adrenal glands: No mass. Kidneys and ureters: Subcentimeter fat density left renal lesion, likely angiomyolipoma. No radiopaque renal, ureteral, or bladder calculi are identified. There is no hydronephrosis. Stomach and bowel: No intestinal obstruction is evident. Retained fecal material is present in the colon. Appendix: No evidence of appendicitis. Intraperitoneal space: No free air. Vasculature: No abdominal aortic aneurysm. Lymph nodes: Nonspecific mesenteric lymph nodes. Urinary bladder: No bladder calculi seen. Reproductive: Intrauterine device. Bones/joints: No pertinent acute abnormality seen. Soft tissues: No pertinent acute abnormality seen. IMPRESSION: No acute findings to explain reported symptoms, within the limitations of a noncontrast examination. Dictated and Authenticated by: Mary Whitt MD. Ordering:BRAD Hernandez MD
--- NOTE | 2024-02-12 07:44 | W.EDPROG ---
Date of service: 02/12/24 Time of Service: 07:45 Medical Decision Making I received signout on this 38-year-old female pending a transvaginal ultrasound to assess for torsion. Patient has a history of ovarian cysts however woke up earlier this morning with sharp sudden left suprapubic pain. She had an unenhanced CT scan negative for any nephrolithiasis and hydronephrosis. She has declined analgesia. Labs unremarkable with no leukocytosis anemia nor thrombocytopenia. Urinalysis showed small blood but microscopy negative for hematuria. No DAYNE. Will reassess following ultrasound. 8:27 AM Ultrasound negative for torsion or free fluid. I met with the patient. She felt improved. I offered a p.o. trial but she felt that this was not necessary as she was not nauseous nor vomiting. I advised her that if her pain returns or if she develops fevers or if she cannot eat or drink that she should return to the emergency department. Otherwise I advised that empiric trial of expectant outpatient management. Quality:[facility] Health Related Social Needs: No Data to Display Sign Out Sign Out Data: Sign Out Comment: pending pelvic ultrasound to eval for potential torsion Last updated by David Serrano MD at 02/12/24 07:40 Discharge Plan Disposition Patient Disposition: Home Discharge Details Clinical Impression: Acute suprapubic pain Primary Care Provider: Felecia Kitchen ED Provider: Myles Carlson Home Meds and New Rx's Prescriptions: Continued drospirenone-ethinyl estradiol [CHINO (28)] 3-0.02 mg tablet 1 tab PO DAILY Qty: 84 4RF Rx Instructions: Take one active tab daily on a continuously with no breaks Kyleena 17.5 mcg/24 hrs (5 yrs) 19.5 mg intrauterine device 1 device intrauterine ONCE Qty: 1 0RF levocetirizine [Xyzal] 5 mg tablet 5 mg PO DAILY lorazepam 0.5 mg tablet 0.5 mg PO BID PRN (Reason: Grief) Qty: 40 0RF naproxen 500 mg tablet 500 mg PO BID PRN (Reason: pain) Qty: 180 3RF meclizine 25 mg tablet 25 mg PO TID PRN albuterol sulfate 90 mcg/actuation HFA aerosol inhaler 2 puff inhalation Q6H PRN (Reason: shortness of breath or wheezing) Qty: 8.5 3RF (DME) Flexichamber Spacer See Rx Instructions .Route Qty: 1 0RF Rx Instructions: As directed budesonide-formoterol [Symbicort] 80-4.5 mcg/actuation HFA aerosol inhaler 2 puff inhalation BID Qty: 10.2 12RF (DME) Maxx Aerosol [place] Enhancer Spacer See Rx Instructions .Route Qty: 1 0RF Rx Instructions: As directed Discharge Instructions Instructions: Abdominal Pain (ED) Additional Instructions: You are seen in the emergency department for your abdominal pain. Your CAT scan showed no sign of any kidney stones. Your ultrasound showed no sign of any ovarian torsion. As we discussed if you develop worsening pain fevers or cannot eat or drink as result of nausea or vomiting please return to the emergency department. Otherwise please follow-up with primary care provider next week.
[2024-02-12 07:48] VITALS: BP 109/63; PULSE 69; RESP 16; O2SAT 100
[2024-02-12 08:39] VITALS: BP 131/72; PULSE 63; RESP 16; O2SAT 98
== END 2024-02-12 08:39 | disposition home or self-care (01) ==
PROVIDERS: Emergency Medicine; Emergency Provider Emergency Medicine; PCP Nurse Practitioner
DX: R10.32 Left lower quadrant pain (principal); Z87.42 Personal history of other diseases of the female genital tract; Z97.5 Presence of (intrauterine) contraceptive device
CPT/HCPCS: 00123; 80048; 81025; 99284; 74176; 76830; 76856; 81003; 81015; 85025

== ENCOUNTER → 2024-02-18 02:33 | Outpatient (CLI) | payer OTHER, BC, SELFPAY ==
--- NOTE | 2024-02-18 07:10 | DI.MAMMO_ITS ---
Exam(s) MG MAMMO SCREENING 60 MIN DUR EXAM: MG MAMMO SCREENING 60 MIN DUR CLINICAL HISTORY: screening, Z12.19, family hx breast cancer, Z80.3, implants TECHNIQUE: Bilateral full field digital CC and MLO mammographic images were obtained with 3D tomosyn thesis and utilizing computer aided detection (CAD). COMPARISON: This is a baseline examination. FINDINGS: Masses/Architectural Distortion: The patient has bilateral breast implants which appear intact. No s uspicious masses or areas of architectural distortion are present. Microcalcifications: No suspicious pleomorphic-type are seen. Skin Thickening/Nipple Retraction: None. IMPRESSION: 1. No evidence for malignancy is seen at this time. 2. Unless there is more urgent need, screening mammography is recommended, as per [employer] guidelines. BI-RADS Category 1 - Negative Breast Density - Category C - Heterogeneously dense Breast density category C or D implies that the patient has dense breast tissue. Dense breast tissue is very common and is not abnormal but dense breast tissue can make it harder to find cancer on a ma mmogram. Also, dense breast tissue may increase their breast cancer risk. This information about the result of the mammogram report was provided to the patient to raise their awareness. Use this report when you speak with the patient about their risks for breast cancer, which includes their family hist ory. At that time, you may recommend for more screening tests (Ultrasound or MRI) as they might be us eful based on their risk. A negative radiographic report should not delay biopsy if a dominant or clinically suspicious mass is present. Up to ten percent of cancers are not identified on mammography. A negative report may reinforce clinical impression. Adenosis and dense breasts may obscure an underlying neoplasm. False positive reports average 6 to 10%. Patient will receive a letter notifying them of these results.
== END ==
PROVIDERS: PCP Nurse Practitioner; Visit Provider Nurse Practitioner
DX: Z12.31 Encounter for screening mammogram for malignant neoplasm of breast (principal); Z80.3 Family history of malignant neoplasm of breast; R92.333 Mammographic heterogeneous density, bilateral breasts
CPT/HCPCS: 77063; 77067